=== PATIENT | male | born 1980 | race Caucasian/White ===

== ENCOUNTER 2021-05-05 08:31 | Outpatient (CLI) | payer SELFPAY ==
[~2021-05-05] VITALS: Ht 182.9 cm; Wt 75.0 kg
[2021-05-05] VITALS (13 sets, daily range): BP systolic 97–117; BP diastolic 54–77; PULSE 42–62
--- NOTE | 2021-05-05 11:17 | NUR ---
specimans obtained by Dr Fontenot and put in formulin and taken to lab
--- NOTE | 2021-05-05 11:39 | NUR ---
Pt to express from radiology s/p lung biopsy. pt is awake and alert, resp reg and unlabored. Pt denies pain or sob at this time, reports is comfortable in his current position with hob slightly elevated approc 10 deg and knee gatch employed. LS are diminished on rt side. PT ecouraged to call if he develops and sob, pain with inspiration, or any other concerns. pt is aware of poc for portable chest xray at 1330, plans to monitor vs q15, and of need to keep him NPO. pt verbalized understanding of information given. he has call light in reach.
--- NOTE | 2021-05-05 14:34 | NUR ---
Pt was given okay to dc by Dr. Jerome after chest xray at 1330, pt has been waiting for his ride. IV was dc'd with cath intact. pt has been ambulatory in room and to with no problem. lunch was provided. Pt continues to deny any sx except that he states occasionally tastes blood in his mouth, but has not been coughing or been coughing up blood. I reviewed dc instructions with pt who verbalized understanding, and I walked with pt to [facility]
== END 2021-05-05 14:45 | disposition home or self-care (01) ==
LOC: COL.RAD 08:31
DX: R91.1 Solitary pulmonary nodule (principal); Z98.890 Other specified postprocedural states
CPT/HCPCS: 32106